=== PATIENT | female | born 1970 | race Caucasian/White ===

== ENCOUNTER → 2019-09-19 | Day surgery (SDC) | payer OTHER ==
[~2019-09-19] MED LIST: CARVEDILOL25 MG PO; COLESTIPOL HCL1 GM PO; FAMOTIDINE20 MG PO; GLUCAGON FOR INJ 1 MG VIAL ONE; HYOSCYAMINE 0.125 MG TAB ONE; LOVASTATIN20 MG PO; MIDAZOLAM HCL 2 MG/2 ML VIAL ONE; PROPOFOL IV EMULSION 10 MG/ML 20 ML VIAL ONE; SERTRALINE HCL100 MG PO
[2019-09-19 11:02] LABS: WBC,FECAL (FECAL LACTOFERRIN) NEGATIVE (NEGATIVE)
[2019-09-19 11:05] VITALS: BP 140/86
--- NOTE | 2019-09-19 12:05 | Operative Report ---
DATE OF PROCEDURE: 09/19/2019 SURGEON: Jeff Bowman MD PROCEDURE: Colonoscopy with polypectomy and biopsies. INDICATION FOR COLONOSCOPY: Left-sided abdominal pain, chronic diarrhea, personal history of colon polyps. MEDICATIONS: The patient was done under MAC, please see anesthesiologist's note. PROCEDURE IN DETAIL: With the patient in left lateral decubitus position, a flexible fiberoptic Olympus colonoscope was inserted into the rectum with ease and advanced all the way to the cecum. A minute polyp was noted in the cecum, biopsied and that was removed per the cold biopsy forceps. The ileocecal valve was intubated and the scope was advanced into the terminal ileum. Biopsies were obtained. The scope was then withdrawn back into the colon. Of note, diverticular disease was noted all the way and was noted throughout the colon. The scope was then withdrawn slowly. Mucosa overlying the ascending colon appeared to be within normal limits other than for diverticular disease. Approximately 5 mm sessile polyp was removed per cold snare polypectomy from the transverse colon. Patchy mild inflammatory changes were noted throughout the left colon including the rectum and multiple random biopsies were obtained. The scope was then retroflexed into the distal rectum. Small internal hemorrhoids were noted, none of which was actively bleeding. The scope was then straightened out, it was subsequently withdrawn after securing an adequate stool specimen, that was sent for the appropriate stool studies. The patient tolerated the procedure well. IMPRESSION: 1. Cecal polyp, removed per cold biopsy forceps. 2. Pandiverticulosis. 3. Transverse colon polyp, cold snared. 4. Mild patchy left-sided colitis. 5. Proctitis, mild. 6. Internal hemorrhoids, none actively bleeding. PLAN: Follow up histology. Follow up stool studies. Start Bentyl 20 mg one p.o. t.i.d. VSL#3 one p.o. b.i.d. The patient might benefit from a followup colonoscopy in 3 years. Jeff Bowman MD [facility] [place]/[facility] /[id number] cc: Cezar Ortega DO
[2019-09-19 14:45] LABS: C DIFFICILE TOXIN A&B AMP PROB NEGATIVE (NEGATIVE)
== END | disposition home or self-care (01) ==
LOC: OR 06:43
PROVIDERS: ATTEND Internal Medicine Gastroenterology
DX: K51.50 Left sided colitis without complications (principal); D12.0 Benign neoplasm of cecum; D12.3 Benign neoplasm of transverse colon; K57.30 Diverticulosis of large intestine without perforation or abscess without bleeding; K62.89 Other specified diseases of anus and rectum; K64.8 Other hemorrhoids; K29.60 Other gastritis without bleeding; K20.9 Esophagitis, unspecified; K21.9 Gastro-esophageal reflux disease without esophagitis; G47.33 Obstructive sleep apnea (adult) (pediatric); I10 Essential (primary) hypertension; F41.9 Anxiety disorder, unspecified; F32.9 Major depressive disorder, single episode, unspecified; Z88.8 Allergy status to other drugs, medicaments and biological substances; Z88.6 Allergy status to analgesic agent; Z91.041 Radiographic dye allergy status; Z01.810 Encounter for preprocedural cardiovascular examination; Z68.42 Body mass index [BMI] 45.0-49.9, adult; Z87.891 Personal history of nicotine dependence
CPT/HCPCS: 45380; 45385; 83630; 83993; 87045; 87177; 87328; 87493; 93005; J1610; J2250; J2704; 45378